=== PATIENT | male | born 1945 | race Caucasian/White ===

== ENCOUNTER → 2017-10-12 16:34 | Outpatient (CLI) | payer MEDICARE, MEDICAID, SELFPAY | PROVIDERS: Family Provider Family Medicine Geriatric Medicine; PCP Family Medicine Geriatric Medicine; Visit Provider Family Medicine Geriatric Medicine | DX: L03.119 Cellulitis of unspecified part of limb (principal) | CPT/HCPCS: 87070; 87077; 87186; 87205 ==

== ENCOUNTER 2017-10-16 10:37 | Emergency (ER) | payer MEDICARE, MEDICAID, SELFPAY ==
[2017-10-16 10:42] VITALS: BP 119/77; PULSE 113; RESP 20; TEMP 36.6; O2SAT 93
[2017-10-16 10:52] VITALS: BP 137/80; PULSE 109; RESP 22; O2SAT 98
--- NOTE | 2017-10-16 11:02 | EKG12_ITS ---
Test Reason : CP Blood Pressure : / mmHG Vent. Rate : 107 BPM Atrial Rate : 107 BPM P-R Int : 168 ms QRS Dur : 090 ms QT Int : 348 ms P-R-T Axes : 056 020 052 degrees QTc Int : 464 ms Sinus tachycardia with Premature supraventricular complexes Otherwise normal ECG Confirmed by HEIDI ALBRIGHT, MARY ([id number]), photo editor JOHN JACOBSEN ([id number] on 10/19/2017 12:59:42 PM Referred By: FRANCISCO Confirmed By:MARY GORDON MD
[2017-10-16] MEDS: HYDROcodone Bitartrate/Apap 5/325 Tablet PO (11:38)
--- NOTE | 2017-10-16 11:55 | RAD_ITS ---
STUDY: X-RAY CHEST REASON FOR EXAM: Male, 72 years old. Pain following CPR. TECHNIQUE: AP and lateral views of the chest. COMPARISON: Comparison is made with prior study dated January 13, 2013. FINDINGS: EKG electrodes are seen. Mild increased markings at the lung bases slightly more prominent on the right side suggestive bibasilar atelectasis. There is no demonstrated pleural abnormality. Normal size heart. Normal mediastinum and fátima. Normal visualized pulmonary arteries. There is atherosclerotic tortuosity of the aortic arch and descending thoracic aorta. There are diffuse degenerative changes of the visualized thoracic spine. Normal visualized ribs, clavicles, and shoulders. There is no demonstrated abnormality of the visualized soft tissue structures of the upper abdomen. RAD/Chest PA and Lateral IMPRESSION: Mild increased markings at the lung bases slightly worse on the right side suggestive of atelectasis. Electronically Signed: Jeramy Cabello MD at 12:20 EST Tel [phone], Service support ,
--- NOTE | 2017-10-16 12:26 | ED.VISSUMM ---
- ER Visit Summary Date of Service: 10/16/17 Chief Complaint: Syncope History of Present Illness: The patient is a 72 M who presents by ambulance after syncopal episode. Initial history was incomplete. The person who witnessed the event was contacted. Patient recalls feeling warm sweaty prior to collapsing. Research Instrumentation Technician at the [facility]/workshop states he appeared weak began to lean. He was placed in a chair. He then had loss of postural tone. He became pale and diaphoretic. He apparently stopped breathing and since they did not feel a pulse CPR was initiated. After 15 seconds patient awoke complaining of chest pain. He denies headache, visual disturbance or ocular complaints. He denies any problems with his hearing. He denies shortness of breath or difficulty breathing. He denies any GI symptoms. He has no known cardiac disease. He denies any abdominal pain. He has not had any vomiting or diarrhea. He has not had any black or maroon colored stools. Physical Examination: Patient is a pleasant elderly male who appears in no distress. Head is atraumatic normocephalic. Pupils are equal round reactive. Extraocular muscles are intact. TMs are pearly white with landmarks noted. Nares patent with no drainage. Posterior pharynx without erythema or exudate. Uvula is midline. There is no dysphonia or dysphasia. Trachea is midline. There is no stridor with auscultation of the neck. Heart is regular without murmur, gallop or rub. S1 and S2 are normal. Lungs are clear to auscultation with good movement of air bilaterally. There is pain palpation over the sternum. No crepitus obtains air was noted. Abdomen is soft and nontender. He is alert and oriented with a nonfocal neurologic exam. Lower extremity exam yields no swelling, discoloration, leg vein distention, palpable cords times on the distribution deep venous system. Test Results: Pain per protocol reveals a sinus tachycardia with premature atrial beats. Two-view chest x-ray was obtained with no evidence of pneumothorax, hemothorax, fractured sternum or ribs. There is minimal chronic changes no on the right lower base. Emergency Department Course and Treatment: EKG was obtained per nursing protocol. Chest x-ray was ordered because of pain elevation of the sternum to evaluate for fracture. Treatment Plan: Patient received a [place] tablet in department and was given a prescription for 10 [place] tablets. Disposition: Discharge with caregivers to [facility] Impression: 1. Vasovagal syncope 2. Chest pain secondary to CPR This note was generated with [employer] dictation software. It may contain incorrect words, spelling, and punctuation that were not noted in review of the chart prior to signing ED Disposition - Plan for ED Patient: Disposition: Home or Assisted Living Chief Complaint: Unresponsive Instructions: ED Syncope Vasovagal, ED Contusion Chest Wall Prescriptions: Hydrocodone Bitart/Apap 5-325 [[place] 5MG-325MG] 1 tab PO Q6H PRN PRN 2 Days #7 tab PRN Reason: Pain Referrals: Clemente Barrett Chi, MD [Primary Care Provider] - 3-5 Days if not improving
--- NOTE | 2017-10-16 12:33 | ED.DCSUM_ITS ---
- ER Visit Summary Date of Service: 10/16/17 Chief Complaint: Syncope History of Present Illness: The patient is a 72 M who presents by ambulance after syncopal episode. Initial history was incomplete. The person who witnessed the event was contacted. Patient recalls feeling warm sweaty prior to collapsing. 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 He was placed in a chair. He then had loss of postural tone. He became pale and diaphoretic. He apparently stopped breathing and since they did not feel a pulse CPR was initiated. After 15 seconds patient awoke complaining of chest pain. He denies headache, visual disturbance or ocular complaints. He denies any problems with his hearing. He denies shortness of breath or difficulty breathing. He denies any GI symptoms. He has no known cardiac disease. He denies any abdominal pain. He has not had any vomiting or diarrhea. He has not had any black or maroon colored stools. Physical Examination: Patient is a pleasant elderly male who appears in no distress. Head is atraumatic normocephalic. Pupils are equal round reactive. Extraocular muscles are intact. TMs are pearly white with landmarks noted. Nares patent with no drainage. Posterior pharynx without erythema or exudate. Uvula is midline. There is no dysphonia or dysphasia. Trachea is midline. There is no stridor with auscultation of the neck. Heart is regular without murmur, gallop or rub. S1 and S2 are normal. Lungs are clear to auscultation with good movement of air bilaterally. There is pain palpation over the sternum. No crepitus obtains air was noted. Abdomen is soft and nontender. He is alert and oriented with a nonfocal neurologic exam. Lower extremity exam yields no swelling, discoloration, leg vein distention, palpable cords times on the distribution deep venous system. Test Results: Pain per protocol reveals a sinus tachycardia with premature atrial beats. Two-view chest x-ray was obtained with no evidence of pneumothorax, hemothorax, fractured sternum or ribs. There is minimal chronic changes no on the right lower base. Emergency Department Course and Treatment: EKG was obtained per nursing protocol. Chest x-ray was ordered because of pain elevation of the sternum to evaluate for fracture. Treatment Plan: Patient received a [place] tablet in department and was given a prescription for 10 [place] tablets. Disposition: Discharge with caregivers to long term Impression: 1. Vasovagal syncope 2. Chest pain secondary to CPR This note was generated with [employer] dictation software. It may contain incorrect words, spelling, and punctuation that were not noted in review of the chart prior to signing ED Disposition - Plan for ED Patient: Disposition: Home or Assisted Living Chief Complaint: Unresponsive Instructions: ED Syncope Vasovagal, ED Contusion Chest Wall Prescriptions: Hydrocodone Bitart/Apap 5-325 [[place] 5MG-325MG] 1 tab PO Q6H PRN PRN 2 Days #7 tab PRN Reason: Pain Referrals: Clemente Barrett Chi, MD [Primary Care Provider] - 3-5 Days if not improving
[2017-10-16 13:16] VITALS: PULSE 98; RESP 17; O2SAT 97
[2017-10-16 13:18] VITALS: BP 128/67; PULSE 96; RESP 15; O2SAT 98
== END 2017-10-16 13:30 | disposition home or self-care (01) ==
PROVIDERS: Emergency Provider Emergency Medicine; Family Provider Family Medicine Geriatric Medicine; PCP Family Medicine Geriatric Medicine
DX: R55 Syncope and collapse (principal); R07.9 Chest pain, unspecified; I49.1 Atrial premature depolarization; R00.0 Tachycardia, unspecified; E66.9 Obesity, unspecified; F79 Unspecified intellectual disabilities; Z79.899 Other long term (current) drug therapy; Z79.52 Long term (current) use of systemic steroids
CPT/HCPCS: 71046; 93005; 99284; J7030